=== PATIENT | male | born 1935 | race Caucasian/White ===

== ENCOUNTER → 2020-11-14 | Outpatient (CLI) | payer OTHER ==
[~2020-11-14] MED LIST: ASPIRIN EC81 MG PO; B 12 PO; CABERGOLINE0.5 MG PO; D 3 PO; ECOTRIN81 MG PO; FLAX SEED PO; FLOMAX 0.4 MG0.4 MG PO; FLONASE ALLER15.8 ML; FLUTICASONE NASAL; LEVOTHYROXINE50 MC1 PO; LEVOTHYROXINE50 MCG PO; LISINOPRIL20 MG PO; OSTEO BI-FLEX1 EAC1 PO; OSTEO BI-FLEX1 EACH PO; SAW PALMETTO450 MG PO; TAMSULOSIN HCL0.4 MG PO; VALSARTAN80 MG PO
== END ==
LOC: CT 11:31
DX: R31.9 Hematuria, unspecified (principal); N20.0 Calculus of kidney; N40.1 Benign prostatic hyperplasia with lower urinary tract symptoms; N13.8 Other obstructive and reflux uropathy
CPT/HCPCS: 36415; 82565; Q9967

== ENCOUNTER → 2020-12-08 | Day surgery (SDC) | payer OTHER | END | disposition home or self-care (01) | LOC: OR 11-24 15:00 | PROVIDERS: Urology | PROC: 0TJB8ZZ Inspection of Bladder, Via Natural or Artificial Opening Endoscopic (ICD-10-PCS; principal; 2020-12-08 12:00) | DX: N40.0 Benign prostatic hyperplasia without lower urinary tract symptoms (principal); N32.89 Other specified disorders of bladder; N20.0 Calculus of kidney; I10 Essential (primary) hypertension; H26.9 Unspecified cataract; M54.9 Dorsalgia, unspecified; E07.9 Disorder of thyroid, unspecified; Z20.822 Contact with and (suspected) exposure to COVID-19; Z91.018 Allergy to other foods; Z79.899 Other long term (current) drug therapy; Z79.82 Long term (current) use of aspirin | CPT/HCPCS: J7040 ==

== ENCOUNTER → 2021-01-12 | Outpatient (CLI) | payer OTHER | LOC: EXRD 10:17 | DX: N20.0 Calculus of kidney (principal); R93.5 Abnormal findings on diagnostic imaging of other abdominal regions, including retroperitoneum | CPT/HCPCS: 74018 ==

== ENCOUNTER → 2021-02-02 | Outpatient (CLI) | payer OTHER ==
[2021-02-02 14:07] LABS: BUN/CREATININE RATIO 21 (0-10)
== END ==
LOC: OPSV2 11:30
PROVIDERS: Urology
DX: Z01.818 Encounter for other preprocedural examination (principal); N20.0 Calculus of kidney; I10 Essential (primary) hypertension
CPT/HCPCS: 36415; 80048; 93005

== ENCOUNTER → 2021-02-09 | Day surgery (SDC) | payer OTHER | END | disposition home or self-care (01) | LOC: OR 11:24 | DX: N20.0 Calculus of kidney (principal); J30.9 Allergic rhinitis, unspecified; N40.0 Benign prostatic hyperplasia without lower urinary tract symptoms; K21.9 Gastro-esophageal reflux disease without esophagitis; E78.5 Hyperlipidemia, unspecified; I10 Essential (primary) hypertension; M19.90 Unspecified osteoarthritis, unspecified site; E03.9 Hypothyroidism, unspecified; Z79.82 Long term (current) use of aspirin; Z79.890 Hormone replacement therapy; Z79.899 Other long term (current) drug therapy; Z91.018 Allergy to other foods | CPT/HCPCS: C1769; J1100; J1956; J2405; J2704; J3010; J7030; J7120 ==

== ENCOUNTER → 2021-02-23 | Outpatient (CLI) | payer OTHER | LOC: HEART 5 11:56 | DX: N20.0 Calculus of kidney (principal); K59.00 Constipation, unspecified | CPT/HCPCS: 74018 ==

== ENCOUNTER → 2021-03-16 | Outpatient (CLI) | payer OTHER | LOC: EXRD 08:21 | DX: N20.0 Calculus of kidney (principal); K59.00 Constipation, unspecified | CPT/HCPCS: 74018 ==

== ENCOUNTER → 2022-05-31 | Outpatient (CLI) | payer OTHER | LOC: KOH-I 15:32 | DX: R05.9 Cough, unspecified (principal); R91.8 Other nonspecific abnormal finding of lung field | CPT/HCPCS: 71046 ==